=== PATIENT | male | born 1950 | race Caucasian/White ===

== ENCOUNTER 2020-12-13 11:36 | Inpatient (IN) | payer MEDICARE ==
[~2020-12-13] VITALS: Ht 180.3 cm; Wt 91.6 kg
[2020-12-13 12:21] LABS: Basophils # (auto) 0 10 ^3/uL (0-0.2); Basophils % (auto) 0.6 % (0.0-2.0); Eosinophils # (auto) 0 10 ^3/uL (0-0.8); Eosinophils % (auto) 0.4 % (0.0-7.0); Hematocrit 41.4 % (41.0-53.0); Hemoglobin 14.5 g/dL (13.5-17.5); Lymphocytes # (auto) 1.3 10 ^3/uL (0.4-5.4); Lymphocytes % (auto) 15.6 % (10.0-50.0); Mean Corpuscular Hemoglobin 32.6 pg (28.0-32.0); Monocytes # (auto) 0.8 10 ^3/uL (0-1.3); Monocytes % (auto) 9.5 % (0.0-12.0); Neutrophils # (auto) 6.4 10 ^3/uL (1.6-8.6); Neutrophils % (auto) 73.9 % (37.0-80.0); Platelet Count (auto) 384 10^3/uL (140-450); Red Blood Cells 4.45 10^6/uL (4.5-5.90); Red Cell Distribution Width 14.1 % (11.8-14.3); White Blood Cell 8.6 10^3/uL (4.4-10.8)
[2020-12-13 12:40] LABS: Albumin 3.3 g/dL (3.4-5.0); Anion Gap 6 (5-15); Blood Urea Nitrogen 9 mg/dL (7-18); Calcium 8.4 mg/dL (8.5-10.1); Carbon Dioxide 27 mmol/L (21-32); Chloride 103 mmol/L (98-107); Glucose 102 mg/dL (74-106); Potassium 4.3 mmol/L (3.5-5.1); Sodium 136 mmol/L (136-145)
[2020-12-13 12:46] LABS: Alanine Aminotransferase 47 U/L (16-61); Alkaline Phosphatase 60 U/L (45-117); Aspartate Aminotransferase 46 U/L (15-37); Bilirubin, Total 0.8 mg/dL (0.2-1.0); GFR African American 108 mL/min; GFR Non-African American 89 mL/min; Total Protein 8.1 g/dL (6.4-8.2)
[2020-12-13 14:49] LABS: INR 1.05 (0.9-1.15); Partial Thromboplastin Time 25.6 sec (23.0-31.2)
[2020-12-13] MEDS ORDERED: ENOXAPARIN SOD 100 MG/1 ML SYRINGE SC ONE (16:00)
[2020-12-13] MEDS ORDERED: IOHEXOL 350 MG/ML 100ML IJ ONE (19:06)
[2020-12-13] MEDS ORDERED: ASPirin 81 mg TAB PO ONE (19:30)
[2020-12-13] MEDS ORDERED: MORPHINE SULF INJ 2 MG/ML SYRINGE 1ML IV PRN (19:30)
[2020-12-13] MEDS ORDERED: NITROGLYCERIN 0.4 MG SL TAB SL PRN (19:30)
[2020-12-13 20:35] LABS: CRP High Sensitivity 0.26 mg/dL (< 0.3)
[2020-12-13 20:42] LABS: Cholesterol 116 mg/dL (< 200); HDL Cholesterol 42 mg/dL (40-59); LDL Cholesterol 69 mg/dL (< 100); Triglycerides 80 mg/dL (< 150)
[2020-12-13] MEDS: ENOXAPARIN SOD 100 MG/1 ML SYRINGE SC SCH (23:18)
[2020-12-14] MEDS ORDERED: IVERMECTIN 3 MG TAB PO ONE (07:00)
[2020-12-14 07:57] LABS: Basophils # (auto) 0.1 10 ^3/uL (0-0.2); Basophils % (auto) 0.8 % (0.0-2.0); Eosinophils # (auto) 0 10 ^3/uL (0-0.8); Eosinophils % (auto) 0.2 % (0.0-7.0); Hematocrit 39.8 % (41.0-53.0); Hemoglobin 14.2 g/dL (13.5-17.5); Lymphocytes # (auto) 1.5 10 ^3/uL (0.4-5.4); Lymphocytes % (auto) 21.5 % (10.0-50.0); Mean Corpuscular Hgb Conc. 35.6 g/dL (32.0-36.0); Mean Corpuscular Volume 92.8 fL (80.0-100.0); Monocytes # (auto) 0.8 10 ^3/uL (0-1.3); Monocytes % (auto) 11.2 % (0.0-12.0); Neutrophils # (auto) 4.6 10 ^3/uL (1.6-8.6); Neutrophils % (auto) 66.3 % (37.0-80.0); Platelet Count (auto) 300 10^3/uL (140-450); Red Blood Cells 4.29 10^6/uL (4.5-5.90); Red Cell Distribution Width 14.1 % (11.8-14.3); White Blood Cell 6.9 10^3/uL (4.4-10.8)
[2020-12-14 08:42] LABS: BUN/Creatinine Ratio 11.9; Bilirubin, Total 0.8 mg/dL (0.2-1.0); Total Protein 7.5 g/dL (6.4-8.2)
[2020-12-14] MEDS: ASCORBIC ACID 1,000 MG TAB PO SCH (10:36)
[2020-12-14] MEDS: ENOXAPARIN SOD 100 MG/1 ML SYRINGE SC SCH ×2 (10:36→21:46)
[2020-12-14] MEDS: ZINC SULFATE 220mg CAP or TAB PO SCH (10:36)
[2020-12-14] MEDS: CHOLECALCIFEROL (VITD3) 2,000 UNIT CAP/TAB PO SCH (10:36)
[2020-12-14] MEDS: DexAMETHasone SOD PHOS 10MG/1ML VIAL INJ IV SCH (10:36)
[2020-12-14] MEDS ORDERED: DOXYCYCLINE 100 MG TAB/CAP PO ONE (13:30)
[2020-12-14] MEDS ORDERED: REMDESIVIR PER PHARMACY 0 ML IV SCH (13:30)
[2020-12-14 14:35] VITALS: BP 157/80
[2020-12-14] MEDS ORDERED: REMDESIVIR 200 MG in NS 210ml LOADING DOSE ADULT IV ONE (15:00)
[2020-12-14] MEDS ORDERED: MET50T PO (15:59)
[2020-12-14 16:00] VITALS: BP 149/75
[2020-12-14] MEDS ORDERED: ASPI-543 PO (16:09)
[2020-12-14] MEDS ORDERED: ATOR10TA PO (16:09)
[2020-12-14] MEDS ORDERED: MAGN1CAP PO (16:17)
[2020-12-14] MEDS ORDERED: CHOL200029 PO (16:17)
[2020-12-14] MEDS ORDERED: OMEG1400 PO (16:17)
[2020-12-14] MEDS ORDERED: GLUC1CAP11 PO (16:17)
[2020-12-14] MEDS: BUDESONIDE (INHALATION) 180 MCG IH IN SCH (19:15)
[2020-12-14] MEDS: ALBUTEROL SULF HFA 90MCG INH 200DOSE IN PRN (19:15)
[2020-12-14] MEDS: DOXYCYCLINE 100 MG TAB/CAP PO SCH (21:46)
[2020-12-14] MEDS: FAMOTIDINE 20 MG TAB PO SCH (21:46)
[2020-12-15] VITALS: BP 130/75
[2020-12-15 07:08] LABS: Potassium 4.1 mmol/L (3.5-5.1)
[2020-12-15 07:21] LABS: Albumin 3.1 g/dL (3.4-5.0); BUN/Creatinine Ratio 16.3; Bilirubin, Total 0.6 mg/dL (0.2-1.0); Calcium 8.4 mg/dL (8.5-10.1); Total Protein 7.4 g/dL (6.4-8.2)
[2020-12-15 08:00] VITALS: BP 132/83
[2020-12-15] MEDS: FAMOTIDINE 20 MG TAB PO SCH ×2 (10:00→21:52)
[2020-12-15] MEDS: DOXYCYCLINE 100 MG TAB/CAP PO SCH ×2 (10:00→21:52)
[2020-12-15] MEDS: BUDESONIDE (INHALATION) 180 MCG IH IN SCH ×2 (10:00→18:34)
[2020-12-15] MEDS: ASCORBIC ACID 1,000 MG TAB PO SCH (10:00)
[2020-12-15] MEDS: ENOXAPARIN SOD 100 MG/1 ML SYRINGE SC SCH ×2 (10:00→21:53)
[2020-12-15] MEDS: ZINC SULFATE 220mg CAP or TAB PO SCH (10:00)
[2020-12-15] MEDS: CHOLECALCIFEROL (VITD3) 2,000 UNIT CAP/TAB PO SCH (10:00)
[2020-12-15] MEDS: DexAMETHasone SOD PHOS 10MG/1ML VIAL INJ IV SCH (10:00)
[2020-12-15 15:58] VITALS: BP 142/78
[2020-12-15] MEDS: REMDESIVIR 100mg 100 MG in SODIUM CHL 0.9% 230 ML IV SCH (16:25)
[2020-12-15] MEDS: ALBUTEROL SULF HFA 90MCG INH 200DOSE IN PRN (21:00)
[2020-12-16] VITALS: BP 148/66
[2020-12-16 06:18] LABS: Albumin 3.1 g/dL (3.4-5.0); Calcium 8.1 mg/dL (8.5-10.1); Potassium 3.8 mmol/L (3.5-5.1)
[2020-12-16] MEDS: BUDESONIDE (INHALATION) 180 MCG IH IN SCH ×2 (06:20→19:39)
[2020-12-16 06:23] LABS: BUN/Creatinine Ratio 17.1; Bilirubin, Total 0.4 mg/dL (0.2-1.0); Total Protein 7.1 g/dL (6.4-8.2)
[2020-12-16 07:36] VITALS: BP 149/81
[2020-12-16] MEDS: ALBUTEROL SULF HFA 90MCG INH 200DOSE IN PRN ×2 (08:52→19:39)
[2020-12-16] MEDS: DexAMETHasone SOD PHOS 10MG/1ML VIAL INJ IV SCH (10:35)
[2020-12-16] MEDS: FAMOTIDINE 20 MG TAB PO SCH ×2 (10:36→21:37)
[2020-12-16] MEDS: DOXYCYCLINE 100 MG TAB/CAP PO SCH ×2 (10:36→21:37)
[2020-12-16] MEDS: ZINC SULFATE 220mg CAP or TAB PO SCH (10:36)
[2020-12-16] MEDS: CHOLECALCIFEROL (VITD3) 2,000 UNIT CAP/TAB PO SCH (10:39)
[2020-12-16] MEDS: ASCORBIC ACID 1,000 MG TAB PO SCH (10:39)
[2020-12-16] MEDS: ENOXAPARIN SOD 100 MG/1 ML SYRINGE SC SCH ×2 (10:40→21:37)
[2020-12-16] MEDS: REMDESIVIR 100mg 100 MG in SODIUM CHL 0.9% 230 ML IV SCH (15:14)
[2020-12-16 15:47] VITALS: BP 127/68
[2020-12-17 00:10] VITALS: BP 141/75
[2020-12-17 06:26] LABS: Potassium 3.9 mmol/L (3.5-5.1)
[2020-12-17 06:33] LABS: Albumin 3.2 g/dL (3.4-5.0); BUN/Creatinine Ratio 15.8; Calcium 8.7 mg/dL (8.5-10.1)
[2020-12-17 06:55] LABS: Bilirubin, Total 0.6 mg/dL (0.2-1.0); Total Protein 6.9 g/dL (6.4-8.2)
[2020-12-17 07:59] VITALS: BP 141/78
[2020-12-17] MEDS: DexAMETHasone SOD PHOS 10MG/1ML VIAL INJ IV SCH (11:25)
[2020-12-17] MEDS: ASCORBIC ACID 1,000 MG TAB PO SCH (11:27)
[2020-12-17] MEDS: DOXYCYCLINE 100 MG TAB/CAP PO SCH ×2 (11:27→21:37)
[2020-12-17] MEDS: FAMOTIDINE 20 MG TAB PO SCH ×2 (11:27→21:37)
[2020-12-17] MEDS: ZINC SULFATE 220mg CAP or TAB PO SCH (11:27)
[2020-12-17] MEDS: CHOLECALCIFEROL (VITD3) 2,000 UNIT CAP/TAB PO SCH (11:27)
[2020-12-17] MEDS: ENOXAPARIN SOD 100 MG/1 ML SYRINGE SC SCH ×2 (11:28→21:37)
[2020-12-17] MEDS: REMDESIVIR 100mg 100 MG in SODIUM CHL 0.9% 230 ML IV SCH (15:13)
[2020-12-17 15:44] VITALS: BP 152/68
[2020-12-17] MEDS: BUDESONIDE (INHALATION) 180 MCG IH IN SCH (22:00)
[2020-12-17] MEDS: ALBUTEROL SULF HFA 90MCG INH 200DOSE IN PRN (22:59)
[2020-12-18] VITALS: BP 140/81
[2020-12-18 08:00] VITALS: BP 136/79
[2020-12-18 08:04] LABS: Potassium 3.8 mmol/L (3.5-5.1)
[2020-12-18 08:11] LABS: Albumin 3.2 g/dL (3.4-5.0); BUN/Creatinine Ratio 17.4; Bilirubin, Total 0.7 mg/dL (0.2-1.0); Calcium 8.4 mg/dL (8.5-10.1); Total Protein 7.4 g/dL (6.4-8.2)
[2020-12-18] MEDS: ZINC SULFATE 220mg CAP or TAB PO SCH (09:38)
[2020-12-18] MEDS: FAMOTIDINE 20 MG TAB PO SCH (09:38)
[2020-12-18] MEDS: DexAMETHasone SOD PHOS 10MG/1ML VIAL INJ IV SCH (09:38)
[2020-12-18] MEDS: DOXYCYCLINE 100 MG TAB/CAP PO SCH (09:38)
[2020-12-18] MEDS: ASCORBIC ACID 1,000 MG TAB PO SCH (09:38)
[2020-12-18] MEDS: ENOXAPARIN SOD 100 MG/1 ML SYRINGE SC SCH (09:39)
[2020-12-18] MEDS: CHOLECALCIFEROL (VITD3) 2,000 UNIT CAP/TAB PO SCH (09:39)
[2020-12-18] MEDS: BUDESONIDE (INHALATION) 180 MCG IH IN SCH (11:37)
[2020-12-18] MEDS ORDERED: APIX5TAB4 PO (12:46)
[2020-12-18] MEDS ORDERED: ZINC220T6 PO (12:48)
[2020-12-18] MEDS ORDERED: ALBUAER3 IN (12:48)
[2020-12-18] MEDS ORDERED: METH4PAK PO (12:48)
[2020-12-18] MEDS ORDERED: FAMO20TA10 PO (12:48)
[2020-12-18] MEDS ORDERED: ASCO10003 PO (12:48)
[2020-12-18] MEDS ORDERED: DOXY-286 PO (12:49)
[2020-12-18 14:19] VITALS: BP 136/79
[2020-12-18] MEDS: REMDESIVIR 100mg 100 MG in SODIUM CHL 0.9% 230 ML IV SCH (15:00)
== END 2020-12-18 15:25 | disposition home or self-care (01) | DRG 871 ==
LOC: ER 11:36 → TELE 11:37 → TELE-WESTW 12-14 13:20
PROVIDERS: ADMIT Nurse Practitioner Acute Care; ATTEND Internal Medicine
PROC: XW033E5 Introduction of Remdesivir Anti-infective into Peripheral Vein, Percutaneous Approach, New Technology Group 5 (ICD-10-PCS; principal; 2020-12-13)
DX: A41.89 Other specified sepsis (principal); U07.1 COVID-19; J12.82 Pneumonia due to coronavirus disease 2019; J96.01 Acute respiratory failure with hypoxia; D68.59 Other primary thrombophilia; I82.442 Acute embolism and thrombosis of left tibial vein; I25.10 Atherosclerotic heart disease of native coronary artery without angina pectoris; I10 Essential (primary) hypertension; E78.5 Hyperlipidemia, unspecified; Z82.49 Family history of ischemic heart disease and other diseases of the circulatory system; D89.839 Cytokine release syndrome, grade unspecified; Z53.29 Procedure and treatment not carried out because of patient's decision for other reasons
CPT/HCPCS: 36415; 71045; 71275; 80053; 80061; 82306; 82728; 83615; 84443; 84484; 85025; 85379; 85610; 85730; 86141; 86850; 86900; 86901; 87426; 93971; 94640; 96372; 97163; G0378; J1100